=== PATIENT | female | born 1990 | race African-American/Black ===

== ENCOUNTER 2023-02-10 22:28 | Emergency (ER) | payer BC, SELFPAY ==
[2023-02-10 22:36] VITALS: BP 136/88; PULSE 107; RESP 18; TEMP 36.8; O2SAT 98; BMI 25.0
--- NOTE | 2023-02-10 22:53 | ED_ITS ---
HPI - Abdominal Pain General Stated Complaint: 4.5 MONTHS , CONSTIPATION Time Seen by Provider: 02/10/23 22:47 Source: patient Mode of arrival: walk-in Limitations: no limitations History of Present Illness HPI narrative: constipation. patient is 5 months . Lower abdominal pressure and felt like she needed to have a BM but was unsuccessful at home. Did insert a suppository before coming to the hospital. As soon as she got here she had the urge to have a BM and was successful. she now has no complaint. Feels well. No problem with the Related Data Allergies Allergy/AdvReac Type Severity Reaction Status Date / Time Penicillins Allergy Unknown Verified 02/10/23 22:40 Review of Systems ROS Status of ROS 10 or more systems reviewed and unremarkable except as noted in history and below [facility] Social History Smoking status: Never smoker Exam Constitutional Vital Signs - 24 hr 02/10/23 22:36 Temperature 98.3 F Pulse Rate [Monitor] 107 H Respiratory Rate 18 Blood Pressure [Right Arm] 136/88 H Pulse Oximetry 98 Oxygen Delivery Method Room Air Common normals: no apparent distress, oriented x3 and no limitations Eye Common normals: EOMs intact bilaterally and conjunctivae normal Respiratory Common normals: normal respiratory effort, no retractions and no use of accessory muscles Cardio Common normals: regular rate, regular rhythm, S1 normal heart sound and S2 normal heart sound GI Common normals: Normal to inspection, nondistended, normoactive bowel sounds present and soft to palpation Other: abdomen is gravid. Nontender Extremity Common normals: normal to inspection and full ROM Neuro Common normals: oriented x3 and CN's II-XII intact bilaterally Psych Appearance: grossly normal Course Vital Signs Vital signs: Vital Signs Temperature 98.3 F 02/10/23 22:36 Pulse Rate 107 H 02/10/23 22:36 Respiratory Rate 18 02/10/23 22:36 Blood Pressure 136/88 H 02/10/23 22:36 Pulse Oximetry 98 02/10/23 22:36 Oxygen Delivery Method Room Air 02/10/23 22:36 Temperature 98.3 F 02/10/23 22:36 Pulse Rate 107 H 02/10/23 22:36 Respiratory Rate 18 02/10/23 22:36 Blood Pressure 136/88 H 02/10/23 22:36 Pulse Oximetry 98 02/10/23 22:36 Oxygen Delivery Method Room Air 02/10/23 22:36 MDM - Abdominal Pain MDM Narrative Medical decision making narrative: patient 5 months and presents complaining of constipation. Did insert a suppository before coming in. Once she arrived here she went to the Bathroom and has a BM. she is now asymptomatic. No complaint. Advised to use stool softener daily and followup with her doctor Discharge Plan Discharge Clinical Impression: Constipation Patient Disposition: Home, Self-Care Mode of Transportation: Private Vehicle Instructions: Constipation (ED) Stand Alone Forms: Portal Instructions Referrals: Physician,Non-Staff, MD [Primary Care Provider] - 1 week Follow Up Appointments: follow up with your doctor. Take stool softner daily
--- NOTE | 2023-02-10 23:08 | PC.NURSE ---
Pt given discharge instructions given to pt. Encouraged to eat fruits/veggies and drink plenty of water. Pt told to follow up with family Dr or travel manager
== END 2023-02-10 23:09 | disposition home or self-care (01) ==
PROVIDERS: Emergency Provider Internal Medicine
DX: O26.892 Other specified pregnancy related conditions, second trimester (principal); K59.00 Constipation, unspecified; Z3A.00 Weeks of gestation of pregnancy not specified
CPT/HCPCS: 99281